=== PATIENT | male | born 1980 | race Caucasian/White ===

== ENCOUNTER 2016-06-12 11:28 | Day surgery (SDC) | payer OTHER ==
--- NOTE | 2016-06-05 21:36 | EKG REPORT ---
SEVERITY:- NORMAL ECG - SINUS RHYTHM : Confirmed by: Kristi Abbott 05-Jun-2016 21:35:30
[~2016-06-12 11:28] MED LIST: CEFAZOLIN 2 GM/D5W RTU 2 GM/50 ML RTUPB IV PRN; LIDOCAINE 0.5% INJ-PF (5 MG/ML) 50 ML SDV INJ PRN; MORPHINE SULFATE 10 MG/ML INJ IV PRN; ONDANSETRON HCL INJ/PF 4 MG/2 ML SDV IV PRN; RINGERS SOLUTION,LACTATED 1,000 ML IV PRN
[2016-06-12] MEDS ORDERED: ACETAMINOPHEN 100 ML IV ONE (12:22)
[2016-06-12] MEDS ORDERED: BUPIVACAINE HCL 0.25 % INJ/PF (2.5 MG/1 ML) 30 ML VIAL ONE (12:37)
[2016-06-12] MEDS ORDERED: HYDROMORPHONE HCL INJ/PF 2 MG/ML AMPULE ONE (12:57)
[2016-06-12] MEDS ORDERED: ONDANSETRON HCL INJ/PF 4 MG/2 ML SDV ONE (12:58)
[2016-06-12] MEDS ORDERED: MIDAZOLAM 2 MG/2 ML INJ ONE (12:58)
[2016-06-12] MEDS ORDERED: DEXAMETHASONE SOD PHOSPHATE INJ 4 MG/1 ML VIAL ONE (12:58)
[2016-06-12] MEDS ORDERED: FENTANYL CITRATE INJ/PF 100 MCG/2 ML AMPUL ONE ×2 (12:58→15:33)
[2016-06-12] MEDS ORDERED: PROPOFOL INJ 200 MG/20 ML VIAL IV ONE (12:58)
[2016-06-12] MEDS ORDERED: KETOROLAC TROMETHAMINE 60 MG/2 ML SDV ONE (12:58)
[2016-06-12] MEDS ORDERED: PROMETHAZINE HCL INJ 25 MG/1 ML VIAL IV PRN ×2 (13:57)
[2016-06-12] MEDS ORDERED: MEPERIDINE HCL/PF INJ 25 MG/1 ML DISP.SYRIN IV PRN (13:57)
[2016-06-12] MEDS ORDERED: FENTANYL CITRATE INJ/PF 100 MCG/2 ML AMPUL IV PRN ×3 (13:57)
[2016-06-12] MEDS ORDERED: DIPHENHYDRAMINE HCL 50 MG/ML VIAL IV PRN (13:57)
[2016-06-12] MEDS ORDERED: OXYCODONE-ACETAMINOPHEN 5-325 MG TABLET PO PRN ×2 (13:57)
[2016-06-12] MEDS ORDERED: MORPHINE SULFATE 10 MG/ML INJ IV PRN (13:57)
--- NOTE | 2016-06-12 15:24 | Brief Operative Note ---
BRIEF OPERATIVE REPORT DATE OF SURGERY: 06/12/16 TIME OF SURGERY: 14:00 PREOPERATIVE DIAGNOSIS: left grade III varicocele POSTOPERATIVE DIAGNOSIS: left grade III varicocele SURGEON: YOLANDA GARZA 1ST PSS DELIVERY PROFESSIONAL: SHER GILLILAND FINDINGS: 4 veins tied COMPLICATIONS: none ESTIMATED BLOOD LOSS: 5 TISSUE REMOVED OR ALTERED: none TECHNICAL PROCEDURE: left inguinal microscopic varicocelectomy
--- NOTE | 2016-06-12 15:58 | OPERATIVE REPORT E ---
Operative Report NAME: DUDLEY MCKEON : 1980 AGE: 35Y DATE OF SURGERY: 06/12/2016 ROOM: PREOPERATIVE DIAGNOSIS: Left grade 3 varicocele. POSTOPERATIVE DIAGNOSIS: Left grade 3 varicocele. PROCEDURE PERFORMED: Left inguinal microscopic varicocelectomy. SURGEON: Júnior Douglass M.D. STARTING SHEET TANK OPERATOR: Efrem Noe ANESTHESIA: General endotracheal. ESTIMATED BLOOD LOSS: 5 mL. INTRAVENOUS FLUIDS: 800 mL Ringer lactate. DRAINS, TUBES AND LINES: None. SPECIMENS: None. COMPLICATIONS: None. CONDITION: Stable. INDICATIONS FOR PROCEDURE: The patient is a 35-year-old gentleman with a history of a left grade 3 varicocele symptomatic for pain. He presents for the above procedure after a description of risks, benefits, and alternatives. DESCRIPTION OF SURGERY: The patient was identified in the preoperative holding area. The surgery with all the attendant risks and benefits was described again in detail with the patient. He confirmed his consent to proceed and was brought back to the operating room. He was given Ancef 2 g and then had general endotracheal anesthesia provided. He then had his genitalia shaved and prepped and draped in the usual sterile fashion. A surgical time out was performed and all were in agreement. We then started the case. I started by marking out the external inguinal ring. Just superior to this we made a 3.5-inch curvilinear incision along Moe's lines in the left groin. We carried the dissection down with Bovie electrocautery in the subcutaneous tissue, cleared off the shelving edge of the external oblique, and then cleared the external oblique down to the external ring where we saw the cord protruding. We opened the external oblique sharply with Metzenbaum scissors and then cleared off the cord bluntly and secured the cranial end of our fascial incision with a 2-0 Vicryl and left this for identification and closure at the conclusion of the case. We encircled the cord and brought it out and then inspected the base of the canal. There was an opening in the base which we closed with 2-0 PDS but there were no perforating vessels seen. We then brought in the operating microscope and under microscopic vision opened the external and internal spermatic fascia. We easily identified several large veins and identified the artery by Doppler. We encircled around 4 different large veins that were seen, which were all the veins in the cord, and suture ligated them with 4-0 silk. We Dopplered the artery prior to each ligation and again at the conclusion confirmed that we had excellent identification of the artery throughout. We were satisfied then that we cleared all the veins from the cord and there were no perforating vessels from deep to the cord, so we then used 0.5% Marcaine for a cord block. We then replaced the cord back in its anatomic position and irrigated. Once we were done irrigating we closed the fascia with the 2-0 Vicryl which we preplaced in a running stitch. We then used more Marcaine in the fascia for pain control and then we closed the Stephenie with 3-0 Vicryl and then deep dermal layer with 3-0 Vicryl as well, both interrupted stitches. We then irrigated once again, used additional Marcaine for pain control, a total of 20 mL was used, and then we closed the skin with running 4-0 Monocryl in a subcuticular stitch. We placed Dermabond on the wound after cleaning it and then placed fluffs and scrotal support. At this point the patient was awoken from anesthesia and transferred to the PACU in stable condition where he will be recovered. Plan is for discharge per PACU protocol. He will have 2 weeks of convalescent leave followed by 2 weeks of light duty and followup with me prior to returning to full duty. DICTATING PHYSICIAN: Júnior Douglass MD [id number] PHY#: [id number] ID: [id number] JOB#: [id number] ACCT: [id number] cc:Júnior Douglass M.D. >
[2016-06-12] MEDS ORDERED: SUCCINYLCHOLINE CHLORIDE INJ 200 MG/10 ML VIAL ONE (16:18)
[2016-06-12] MEDS ORDERED: OXYCODONE-ACETAMINOPHEN 5-325 MG TABLET ONE (16:20)
[2016-06-12 17:07] VITALS: BP 126/88
== END 2016-06-12 17:20 | disposition home or self-care (01) ==
LOC: OROUT 11:28 → EDBD 13:30 → OROUT 17:20
PROVIDERS: ATTEND Urology
PROC: 0VBG0ZZ Excision of Left Spermatic Cord, Open Approach (ICD-10-PCS; principal; 2016-06-12 13:30)
DX: I86.1 Scrotal varices (principal); G47.33 Obstructive sleep apnea (adult) (pediatric); Z79.1 Long term (current) use of non-steroidal anti-inflammatories (NSAID)
CPT/HCPCS: 93005; 93010; 55535; J2250; J1100; J1885; J3010; J1170; J0330; J2405; J2704; J0690; J0131; 860